=== PATIENT | female | born 1945 | race Caucasian/White ===

== ENCOUNTER → 2016-02-27 | Outpatient (CLI) | payer OTHER ==
[~2016-02-27] VITALS: Ht 162.6 cm; Wt 81.3 kg
[~2016-02-27] MED LIST: AMBIEN 10 MG TA10 MG PO; ATORVASTATIN CA40 MG PO; B12INJ IM; CO Q10100 MG PO; HYDROCODON-ACE1 EAC7 PO; HYDROCODONE-AP1 EAC6 PO; MOBIC15 MG PO; MOBIC7.5 M1 PO; NORFLEX100 MG PO; OMEPRAZOLE 20 M20 M1 PO; PREMARIN VAGI42.5 G1 TOP; PREMARIN VAGI42.5 G1 VAG; VITAMIN B-12500 MCG PO; VITAMIN D1000 UNI1 PO
--- NOTE | ~2016-02-27 | HPC ---
[facility] [address] [place] [address] PAIN MANAGEMENT CONSULTATION Name: NADIA LEIJA [facility] [id number] Admission: 02/27/16 Attend Phys: Zan Smith DO Discharge: Date of : 41 Report #: [id number] THIS REPORT FOR: //name// CC: ERIKA Smith DATE OF SERVICE: 02/27/2016 CHIEF COMPLAINT: Low back pain, left lower extremity pain with paresthesias. HISTORY OF PRESENT ILLNESS: As you know, the patient is a very pleasant 70-year-old female who returns today in followup visit reporting pain score no greater than 3/10. States her pain is aching, pressure and numbness in sensation, exacerbated with sitting and standing, improves with medications and hot baths. She returns today for medication refill. She is denying any side effects to medication. Reports about an 80-90% improvement in overall symptoms with the medications as currently prescribed. She returns for refills for the next 3 months. She is denying new injury, new trauma that may have led to progression of symptoms. ALLERGIES: SIMVASTATIN, ADHESIVE TAPES. CURRENT MEDICATIONS: Hydrocodone 5/325 one tab every 8 hours p.r.n. hours for pain, meloxicam 15 mg 1/2 tab twice a day, cholecalciferol 1000 units per day, cyanocobalamin 500 mcg once a day, Coenzyme Q10 100 mg per day, omeprazole 20 mg per day, zolpidem 10 mg p.o. at bedtime, atorvastatin 40 mg per day. SOCIAL HISTORY: The patient denies tobacco, alcohol or IV illicit drug use. She is retired nearly 26 years. She is unaccompanied today. PHYSICAL EXAMINATION: VITAL SIGNS: Blood pressure 141/61, pulse 69, respiratory rate 18 and unlabored. The patient is 99% on room air. Height 5 feet 4 inches tall, weight 179.2 pounds, BMI calculated 30.7. GENERAL: Well-developed, well-nourished, well-hydrated 70-year-old female appearing stated age, placing current pain score around 3/10. HEENT: Normocephalic, atraumatic. Pupils equal, round, reactive to light. Extraocular muscles are intact. Sclerae nonicteric without injection. Speech remains fluent. EXTREMITIES: Show no clubbing, no cyanosis, no edema. MUSCULOSKELETAL: Seated straight leg raising remains negative. Supine straight leg raising positive on the left. It is noted about 30-35 degree angle. Anya test is negative. Gait is slightly antalgic but remains tandem. Station is normal. Intact to light touch from L1 through S2 dermatomes. ASSESSMENT: [place] [address] PAIN MANAGEMENT CONSULTATION Name: NADIA LEIJA Room #: REG [facility]#: [id number] Admission: 02/27/16 Attend Phys: Zan Smith DO Discharge: Date of : 41 Report #: [id number] 1. Lumbar radiculopathy. 2. Spinal stenosis of the lumbar spine. 3. Displacement of lumbar intervertebral disk with radiculopathy. 4. Lumbosacral spondylosis with radiculopathy. 5. Degeneration of the lumbar spine. 6. Chronic intractable pain. PLAN: 1. The patient returns today in followup visit where we have discussed medication management. She appears to be doing well with medications. Did indicate an exacerbation of symptoms that occurred without injury or trauma. This resolved over a 2-week period that with the use of hydrocodone and rest and relaxation. She states her pain is now back to a level of 3/10. At this time, she does not wish to move forward with any interventional treatment. She wishes to continue with the medication therapy as currently prescribed. She is denying side effects of medication, does report about an 80% improvement in symptoms with the medications. 2. The patient was provided a prescription of Mobic 15 mg dose one-half tab p.o. b.i.d. with meals, #30 with 5 refills, 6 months' worth of meloxicam therapy. 3. The patient was provided a prescription of [place] 5/325 one tab every 8 hours p.r.n. for pain, I have given the patient #90 releases of today and 4 weeks from today. Typically, the patient is able to have these last for nearly 3 months or greater. She was given the prescriptions and advised to take the medication only when pain is intolerable. 4. The patient will return to our clinic on an as needed basis for possible epidural injections or more aggressive treatment options. Otherwise, we will see her back in followup visit in 3 months for medications. <ELECTRONICALLY SIGNED> By: Zan Smith DO 02/27/16 1316 1211 1251 Zan Smith DO /nt
[2016-02-27 11:08] VITALS: BP 141/61
== END | disposition home or self-care (01) ==
LOC: PAIN 06:02
DX: M51.16 Intervertebral disc disorders with radiculopathy, lumbar region (principal); M48.06 Spinal stenosis, lumbar region; M47.27 Other spondylosis with radiculopathy, lumbosacral region; G89.29 Other chronic pain

== ENCOUNTER → 2016-05-29 | Outpatient (CLI) | payer OTHER ==
[~2016-05-29] VITALS: Ht 165.1 cm; Wt 80.8 kg
--- NOTE | ~2016-05-29 | HPC ---
[facility] [address] [place] [address] PAIN MANAGEMENT CONSULTATION Name: NADIA LEIJA Room #: REG [facility] Tamir.#: [id number] Admission: 05/29/16 Attend Phys: Zan Smith DO Discharge: Date of : 41 Report #: [id number] THIS REPORT FOR: //name// CC: ERIKA Smith DATE OF SERVICE: 05/29/2016 REFERRING PHYSICIAN: Erika Perez M.D. CHIEF COMPLAINT: Low back pain, left lower extremity pain and paresthesias. HISTORY OF PRESENT ILLNESS: As you know, the patient is a very pleasant 71-year-old female who returns today in followup visit with continued low back pain, left lower extremity pain for which she places pain score 2/10. She states the pain is aching, pressure and numbness in sensation, exacerbated with sitting and standing, improves with medications and hot baths. She returns today in followup visit for medication management. She feels medications are working beneficially for pain control. Reporting upwards of 90% improvement in overall symptoms with the use of the medication itself. She is denying any side effects. She wishes to continue the medication at current dosing. ALLERGIES: ADHESIVE TAPE and SIMVASTATIN. CURRENT MEDICATIONS: Hydrocodone 5/325 one tab every 8 hours p.r.n. for pain, Meloxicam 15 mg 1/2 tab p.o. b.i.d., cholecalciferol 1000 units per day, cyanocobalamin 1000 mcg per day, Lipitor 40 mg per day, zolpidem 10 mg p.o. at bedtime, omeprazole 20 mg per day, Coenzyme Q10 100 mg dose 1 tab per day. SOCIAL HISTORY: The patient denies tobacco, alcohol, IV or illicit drug use. She retired 27 years ago. She is unaccompanied today. IMAGING: No new imaging available. PHYSICAL EXAMINATION: VITAL SIGNS: Blood pressure 146/59, pulse 60, respiratory rate 20, unlabored. The patient is 100% on room air. Height 5 feet 5 inches tall, weight 178.2 pounds, BMI calculated 29.7. GENERAL: Well-developed, well-nourished, well-hydrated 71-year-old female appearing her stated age. Pain is rated at around 2/10. HEENT: Normocephalic, atraumatic. Pupils equal, round, reactive to light. Extraocular muscles are intact. Sclerae nonicteric without injection. EXTREMITIES: Show no clubbing, no cyanosis, no edema. MUSCULOSKELETAL: Seated straight leg raising negative. Supine straight leg raising positive on the left. Anya's test is negative. Modified Gaenslen's positive for axial low back pain. Gait is slightly antalgic favoring left lower [facility] [address] [place] [address] PAIN MANAGEMENT CONSULTATION Name: NADIA LEIJA Room #: REG [facility]#: [id number] Admission: 05/29/16 Attend Phys: Zan Smith DO Discharge: Date of : 41 Report #: [id number] extremity over right. Muscle bulk and tone equal and symmetrical. ASSESSMENT: 1. Symptomatic lumbar radiculopathy. 2. Spinal stenosis of the lumbar spine. 3. Displacement of lumbar intervertebral disk with radiculopathy. 4. Lumbosacral spondylosis with radiculopathy. 5. Degeneration of the lumbar spine. 6. Chronic intractable pain. PLAN: 1. The patient returns today in followup visit requesting refill on medications. The patient feels medications are working beneficially. She is denying any side effects with the medications at this time, wishes to continue for the next 3 months. At this point, the patient does appear to be doing well. She reports good efficacy with the pain medication and wishes to continue her therapy. 2. The patient was provided a prescription of Mobic 15 mg dose one-half tab p.o. b.i.d. I have given the patient #30 tablets, 5 refills. 3. The patient was provided a prescription of [place] 5/325 one tab p.o. q. 8 hours p.r.n. for pain, given the patient #90 tablets, releases of today, 4 weeks from today, 8 weeks from today, 3 months' worth of medication. 4. The patient will return to our clinic in 3 months for ongoing medical therapy or earlier if she wishes to undergo interventional treatment or discuss options for therapy. <ELECTRONICALLY SIGNED> By: Zan Smiht DO 06/04/16 1602 0715 1212 Zan Smith DO /nt
[2016-05-29 10:29] VITALS: BP 146/59
== END ==
LOC: PAIN 07:48
DX: M51.16 Intervertebral disc disorders with radiculopathy, lumbar region (principal); M48.06 Spinal stenosis, lumbar region; R20.8 Other disturbances of skin sensation; M47.27 Other spondylosis with radiculopathy, lumbosacral region; G31.89 Other specified degenerative diseases of nervous system; G89.29 Other chronic pain

== ENCOUNTER → 2016-08-21 | Outpatient (CLI) | payer OTHER ==
[~2016-08-21] VITALS: Ht 165.1 cm; Wt 79.6 kg
[~2016-08-21] MED LIST changes: +AMITRIPTYLINE H50 M2 PO; +GABAPENTIN 100100 MG PO; +NEURONTIN 300300 M1 PO
[2016-08-21 09:21] VITALS: BP 145/68
== END | disposition home or self-care (01) ==
LOC: PAIN 06:49
DX: M51.16 Intervertebral disc disorders with radiculopathy, lumbar region (principal); M48.06 Spinal stenosis, lumbar region; G89.29 Other chronic pain; M99.83 Other biomechanical lesions of lumbar region; F11.20 Opioid dependence, uncomplicated; Z98.890 Other specified postprocedural states; Z88.8 Allergy status to other drugs, medicaments and biological substances

== ENCOUNTER → 2016-12-11 | Outpatient (CLI) | payer OTHER ==
[~2016-12-11] VITALS: Ht 165.1 cm; Wt 82.3 kg
--- NOTE | ~2016-12-11 | HPC ---
[facility] [address] [place] [address] PAIN MANAGEMENT CONSULTATION Name: NADIA LEIJA [facility] [id number] Admission: 12/11/16 Attend Phys: Zan Smith DO Discharge: Date of : 41 Report #: [id number] THIS REPORT FOR: //name// CC: TIMOTHY Smith DATE OF SERVICE: 12/11/2016 CHIEF COMPLAINT: Low back pain, left lower extremity pain and paresthesias. HISTORY OF PRESENT ILLNESS: As you know, the patient is a very pleasant 71-year-old female who returns today in followup visit for medication management. She is taking no more than 3 hydrocodone a day. This in conjunction with meloxicam appears to improve pain fairly significantly. The patient returns today requesting refill of the therapy. She does not need interventional treatments at this time. The patient has been stabilized on this medication for very long period of time. She drives an extremely long distance to come to this clinic for medication management. She denies any new injury new trauma that may have led to symptom continuation and has had no change in medical history since that time. ALLERGIES: ADHESIVE TAPE AND SIMVASTATIN. CURRENT MEDICATIONS: Hydrocodone 5/325 one tab every 8 hours p.r.n. for pain, meloxicam 15 mg 1/2 tab p.o. b.i.d., cholecalciferol 1000 units per day, cyanocobalamin 1000 mcg per day, Lipitor 40 mg per day, zolpidem 10 mg per day, omeprazole 20 mg per day, Coenzyme Q10 100 mg once a day. SOCIAL HISTORY: The patient denies tobacco, alcohol, IV or illicit drug use. She is retired nearly 28 years ago, unaccompanied today. IMAGING: No imaging available. PHYSICAL EXAMINATION: VITAL SIGNS: Blood pressure 151/70, pulse 68, respiratory rate 16, unlabored. The patient is 98% on room air, height 5 feet 5 inches tall, weight 181 pounds, BMI calculated 30.2. GENERAL: Well-developed, well-nourished, well-hydrated 71-year-old female appearing stated age, placing current pain score 2/10. HEENT: Normocephalic, atraumatic. Pupils equal, round, reactive to light. Extraocular muscles are intact. EXTREMITIES: Show no clubbing, no cyanosis, no edema. MUSCULOSKELETAL: Seated straight leg raising negative. Supine straight leg raising remains mildly positive left, but improved from previous evaluations. Anya test negative. Modified Gaenslen's is positive for axial low back pain. Gait is normal. [address] [address] PAIN MANAGEMENT CONSULTATION Name: NADIA LEIJA Room #: REG [facility].#: [id number] Admission: 12/11/16 Attend Phys: Zan Smith DO Discharge: Date of : 41 Report #: [id number] ASSESSMENT: 1. Symptomatic lumbar radiculopathy. 2. Spinal stenosis of lumbar spine. 3. Displacement of lumbar intervertebral disk with radiculopathy. 4. Lumbosacral spondylosis with radiculopathy. 5. Lumbar degeneration. 6. Chronic intractable pain. PLAN: 1. The patient returns today in followup visit for medication management. She has not needed interventional treatments in some time. She is taking hydrocodone consistently along with use of meloxicam for which she returns in followup visit to receive refills. We have discussed with the patient the long distance that she has to drive, just one way to reach here is almost an hour and quarter, total round trip time 2-1/2 hours. 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 I have recommended the patient she talk to her primary care physician about taking over these medications. These medications have been stable for a very long period of time. We agree that her treatment is appropriate and this can be taken over by her primary care physician and continued. If adjustments need to be made, we would certainly be willing to see her back for adjustments, though I do not feel that driving the distance she has to receive these medications is an appropriate use of the patient's time. The patient will discuss this with her primary care and we will be releasing her care back to the PCP for continuation of therapy and be available to see the patient back in followup for visit if injections are necessary. 2. I have advised the patient if injections are necessary, she can make a contact with our clinic, come in any time to undergo epidural injections to address lumbar radicular symptoms secondary to spinal stenosis. 3. The patient was provided a prescription of meloxicam 15 mg dose one-half tab p.o. b.i.d., given #30 tablets with 5 refills, 6 months' worth of medication. She denies any side effects with therapy and believes is working well. 4. The patient was provided refill prescription on hydrocodone 5/325 one tab every 8 hours p.r.n. for pain, #90 releases of today, 4 weeks from today, 8 weeks from today, 3 months' worth of medication. 5. The patient is reporting what it sounds like is some urinary hesitancy. I have advised the patient to follow up with her PCP and gyno-urologist for evaluation. She has had this symptom in the past. I believe this is recurrent and she may need to see her gyno-urologist for evaluation further. 6. We will see the patient back in followup visit for interventional treatments. We wish to thank you for the opportunity to follow this patient for [facility] [address] [place] [address] PAIN MANAGEMENT CONSULTATION Name: NADIA LEIJA [facility]: [facility] [id number] Admission: 12/11/16 Attend Phys: Zan Smith DO Discharge: Date of : 41 Report #: [id number] a period of time since 2012. We will be releasing her care for ongoing medication therapy to her PCP in her local area. By: [id number] Zan Smith DO /nt
[2016-12-11 09:27] VITALS: BP 151/70
== END ==
LOC: PAIN 07:06
DX: M47.27 Other spondylosis with radiculopathy, lumbosacral region (principal); M51.16 Intervertebral disc disorders with radiculopathy, lumbar region; M48.061 Spinal stenosis, lumbar region without neurogenic claudication; G89.29 Other chronic pain; Z91.09 Other allergy status, other than to drugs and biological substances; Z88.8 Allergy status to other drugs, medicaments and biological substances; Z79.899 Other long term (current) drug therapy; Z79.891 Long term (current) use of opiate analgesic